=== PATIENT | female | born 1930 | race Two or more races ===

== ENCOUNTER → 2017-07-17 | Outpatient (CLI) | payer MEDICARE, OTHER | END | disposition home or self-care (01) | LOC: RADPV 13:34 | PROVIDERS: ATTEND Nurse Practitioner | DX: Z13.820 Encounter for screening for osteoporosis (principal); M85.88 Other specified disorders of bone density and structure, other site; M81.0 Age-related osteoporosis without current pathological fracture | CPT/HCPCS: 77080 ==

== ENCOUNTER → 2018-10-22 | Outpatient (CLI) | payer MEDICARE, OTHER | END | disposition home or self-care (01) | LOC: RADPV 09:25 | PROVIDERS: ATTEND Family Medicine | DX: M43.8X5 Other specified deforming dorsopathies, thoracolumbar region (principal); M46.06 Spinal enthesopathy, lumbar region; M25.572 Pain in left ankle and joints of left foot; W19.XXXA Unspecified fall, initial encounter; Y93.89 Activity, other specified; Y92.89 Other specified places as the place of occurrence of the external cause; Y99.8 Other external cause status | CPT/HCPCS: 72100 ==

== ENCOUNTER 2019-07-29 15:44 | Emergency (ER) | payer MEDICARE, OTHER ==
[~2019-07-29] VITALS: Ht 162.6 cm; Wt 77.3 kg
[2019-07-29] MEDS ORDERED: DOCU-275 PO (15:58)
[2019-07-29 16:51] LABS: BASOPHILS % (AUTO) 0.5 % (0.0-2.0); EOSINOPHILS % (AUTO) 0.4 % (1.0-6.0); HEMATOCRIT 44.4 % (36-46); HEMOGLOBIN 14.4 g/dL (12.0-16.0); LYMPHOCYTES # (AUTO) 2.6 K/uL (1.0-4.8); MEAN CORPUSCULAR HEMOGLOBIN 25.7 pg (26.0-34.0); MEAN CORPUSCULAR HGB CONC 32.4 G/dL (31.0-37.0); MEAN CORPUSCULAR VOLUME 80 fL (80-100); MONOCYTES # (AUTO) 0.6 K/uL (0.1-1.0); NEUTROPHILS # (AUTO) 6.7 K/uL (1.8-7.7); NEUTROPHILS % (AUTO) 67.1 % (40.0-70.0); PLATELET COUNT (AUTO) 221 K/uL (150-450); RED BLOOD CELL COUNT(AUTO) 5.58 MIL/uL (4.00-5.20); RED CELL DISTRIBUTION WIDTH 14.6 % (11.5-14.5)
[2019-07-29 16:58] LABS: CALCIUM, TOTAL 9.9 mg/dL (8.8-10.5); CREATININE 0.94 mg/dL (0.60-1.30); INR 1.1 (0.9-1.1); POTASSIUM 4.4 mmol/L (3.5-5.1); PROTHROMBIN TIME 10.7 SEC (9.4-11.6)
[2019-07-29 17:05] LABS: ALBUMIN 3.8 g/dL (3.4-5.0); BILIRUBIN,TOTAL 0.2 mg/dL (0.1-1.0); TOTAL PROTEIN, SERUM 8.2 g/dL (6.4-8.2)
[2019-07-29 19:36] VITALS: BP 136/80
== END 2019-07-29 20:08 | disposition home or self-care (01) ==
LOC: EMS 15:47
DX: K60.2 Anal fissure, unspecified (principal); K59.00 Constipation, unspecified

== ENCOUNTER → 2020-04-17 | Outpatient (CLI) | payer MEDICARE, OTHER ==
[~2020-04-17] MED LIST: DOCU-275 PO
== END | disposition home or self-care (01) ==
LOC: RADPV 09:55
PROVIDERS: ATTEND Nurse Practitioner
DX: M19.041 Primary osteoarthritis, right hand (principal)
CPT/HCPCS: 73130-TC

== ENCOUNTER → 2021-04-20 | Outpatient (CLI) | payer MEDICARE, OTHER ==
[~2021-04-20] MED LIST changes: +DOCU-270 PO; -DOCU-275 PO
== END | disposition home or self-care (01) ==
LOC: CARDPV 09:11
PROVIDERS: ATTEND Nurse Practitioner
DX: M25.841 Other specified joint disorders, right hand (principal); R22.31 Localized swelling, mass and lump, right upper limb
CPT/HCPCS: 76881